=== PATIENT | female | born 1950 | race Caucasian/White ===

== ENCOUNTER → 2023-09-04 07:26 | Outpatient (REF) | payer MEDICARE, OTHER, SELFPAY | LOC: WDC 07:26 | PROVIDERS: ATTENDING PHYSICIAN Obstetrics & Gynecology Gynecology; FAMILY PHYSICIAN Student in an Organized Health Care Education/Training Program | DX: Z12.31 Encounter for screening mammogram for malignant neoplasm of breast (principal); M81.0 Age-related osteoporosis without current pathological fracture | CPT/HCPCS: 77063; 77067; 77080 ==

== ENCOUNTER → 2023-10-22 10:17 | Outpatient (REF) | payer MEDICARE, OTHER, SELFPAY | LOC: DHCBC MAIN 10:17 | PROVIDERS: ATTENDING PHYSICIAN Internal Medicine; FAMILY PHYSICIAN Student in an Organized Health Care Education/Training Program | DX: I34.1 Nonrheumatic mitral (valve) prolapse (principal); I10 Essential (primary) hypertension; I34.0 Nonrheumatic mitral (valve) insufficiency | CPT/HCPCS: 93306 ==

== ENCOUNTER → 2023-11-04 08:04 | Outpatient (REF) | payer MEDICARE, OTHER, SELFPAY | LOC: RAD 08:04 | PROVIDERS: ATTENDING PHYSICIAN Orthopaedic Surgery; FAMILY PHYSICIAN Student in an Organized Health Care Education/Training Program | DX: M25.561 Pain in right knee (principal) | CPT/HCPCS: 78315; A9503 ==

== ENCOUNTER → 2023-11-29 10:25 | Outpatient (REF) | payer MEDICARE, OTHER, SELFPAY | LOC: RAD 10:25 | PROVIDERS: ATTENDING PHYSICIAN Orthopaedic Surgery; FAMILY PHYSICIAN Student in an Organized Health Care Education/Training Program | DX: M25.561 Pain in right knee (principal) | CPT/HCPCS: 73700 ==

== ENCOUNTER → 2024-03-23 09:23 | Outpatient (REF) | payer MEDICARE, OTHER, SELFPAY | LOC: RAD 09:23 | PROVIDERS: ATTENDING PHYSICIAN Internal Medicine Endocrinology, Diabetes & Metabolism; FAMILY PHYSICIAN Student in an Organized Health Care Education/Training Program; REFERRING PHYSICIAN Internal Medicine | DX: E04.2 Nontoxic multinodular goiter (principal) | CPT/HCPCS: 76536 ==

== ENCOUNTER → 2024-09-30 10:07 | Outpatient (REF) | payer MEDICARE, OTHER, SELFPAY | LOC: RCS 10:07 | PROVIDERS: ATTENDING PHYSICIAN Internal Medicine; FAMILY PHYSICIAN Student in an Organized Health Care Education/Training Program | DX: I34.1 Nonrheumatic mitral (valve) prolapse (principal); I34.0 Nonrheumatic mitral (valve) insufficiency | CPT/HCPCS: 93306 ==

== ENCOUNTER 2024-10-19 12:50 | Emergency (ER) | payer MEDICARE, OTHER, SELFPAY ==
[2024-10-19 13:02] VITALS: BP 132/80
[2024-10-19 13:23] LABS: % Basophils 0.5 % (0-2); % Eosinophils 0.9 % (0-6); % Immature Granulocytes 0.5 % (0-0.5); % Lymphocytes 8.6 % (20.5-51.1); % Monocytes 5.7 % (1.7-9.3); % Neutrophils 83.8 % (42.2-75.2); Absolute Basophils 0.1 10^3/uL (0-0.2); Absolute Eosinophils 0.1 10^3/uL (0-0.7); Absolute Immature Granulocytes 0.1 10^3/uL (0-0.05); Absolute Monocytes 0.7 10^3/uL (0.1-0.6); Hematocrit 42.1 % (37.0-47.0); Mean Corp Hgb Conc. 33.3 g/dL (33.0-37.0); Mean Corpuscular Hgb 28.9 pg (27.0-31.0); Mean Platelet Volume 9.6 fL (7.4-10.4); Nucleated Red Blood Cells % 0 %; Platelet Count 355 10^3/uL (130-400); Red Blood Cell Count 4.84 10^6/uL (4.20-5.40); Red Cell Dist. Width 15.3 % (11.5-14.5)
[2024-10-19 13:39] LABS: ALT (SGPT) 15 U/L (0-35); AST (SGOT) 26 U/L (14-36); Albumin 4.6 g/dl (3.5-5.0); Alkaline Phosphatase 78 U/L (38-126); Blood Urea Nitrogen 13 mg/dl (7-17); Calcium 10.7 mg/dl (8.4-10.2); Carbon Dioxide 18 mmol/L (22-30); Chloride 105 mmol/L (98-107); Glucose 170 mg/dl (70-99); Lipase 157 U/L (23-300); Potassium 3.6 mmol/L (3.5-5.1); Sodium 139 mmol/L (135-145); Total Bilirubin 0.8 mg/dl (0.2-1.3); Total Protein 7.8 g/dl (6.3-8.2); eGFR > 60.00
--- NOTE | 2024-10-19 14:52 | ED.GENMED ---
History of Present Illness
General
Chief Complaint: Abdominal Symptoms
Source: patient
Exam Limitations: none
Time Seen by Provider: 10/19/24 14:51
Nursing documentation reviewed up to this point in time: agreed with
History of Present Illness
History of Present Illness:
74-year-old female with history of HTN, diverticulitis, IBS, Sjogren syndrome, osteoporosis, hypothyroidism, ADHD, balance disorder, delusional disorder, MDD, neurodermatitis, paranoia, presents for pain across lower abdomen. Last BM 2 days ago.
Feels constipated. Vomited 3-4 times in past 18 hours, last emesis here in [place]. Feels nauseous.
Past History
Past History
ED Past Medical History: HTN, Psychiatric and Other (IBS, TGA, Diverticulitis); Negative Asthma, Hypercholesterolemia or NIDDM
ED Past Surgical History: Orthopedic
Social History
Tobacco: Former smoker
Alcohol: None
Drug: None
Personal: Other
Living: with family
Review of Systems
Review of Systems
Allergies reviewed?: Yes
All Other Systems: ROS reviewed and negative except as documented in HPI and ROS
Constitutional: Denies fever
Cardiac: Denies chest pain
ABD/GI: Reports abdominal pain, nausea, vomiting and constipated; Denies diarrhea
: Denies dysuria, frequency or difficulty voiding
Musculoskeletal: Reports no symptoms
Skin: Reports no symptoms
Neurological: Reports no symptoms
Phy Exam
Physical Exam
Physical Exam:
GENERAL: No acute distress. A&Ox3.
CONSTITUTIONAL: Afebrile.
EYES: clear, conjunctivae normal
ENMT: moist mucus membranes, Pharynx nl
RESPIRATORY: Regular respirations, nonlabored, lungs clear.
CARDIOVASCULAR: Regular rate and rhythm, no murmurs, no rubs.
GI: Soft, generally tender, nondistended, normal BS
Rectal: no stool in rectal vault
MUSCULOSKELETAL: Moves with ease. Well perfused.
SKIN: Warm, dry, pink
PSYCH: Anxious mood and affect. Well kept, interactive and appropriate
NEUROLOGIC: Awake, alert and oriented. No focal neurological deficits
Course
Orders/Labs/Results
Orders:
Orders
10/19/24 13:12
Complete Blood Count/With Diff Urgent
Comprehensive Metabolic Panel Urgent
Lipase Urgent
10/19/24 14:58
CT Abd/Pel (IV only)-DH only Urgent
Comment:
Reason For Exam: pain across lower abdomen
10/19/24 14:59
0.9% Sodium Chloride 500 ml [Nss] 500 ml IV BOLUS
10/19/24 15:05
Ondansetron Injectable [Zofran] 4 mg .ROUTE .STK-MED ONE
10/19/24 16:04
Magnesium Citrate [Citroma] 300 ml PO ONCE ONE
10/19/24 16:15
Electrocardiogram (*1) Urgent
Reason for Study: QTc Monitoring
EKG- Treatment ONCE
Ondansetron Injectable [Zofran] 4 mg IV NOW STA
Abnormal Lab Results
10/19/24
13:12
WBC 12.0 H 10^3/uL
(4.8-10.8)
RDW 15.3 H %
(11.5-14.5)
Abs Immat Gran (auto) 0.1 H 10^3/uL
(0-0.05)
Absolute Neuts (auto) 10.0 H 10^3/uL
(1.4-6.5)
Absolute Lymphs (auto) 1.0 L 10^3/uL
(1.2-3.4)
Absolute Monos (auto) 0.7 H 10^3/uL
(0.1-0.6)
Neutrophils % 83.8 H %
(42.2-75.2)
Lymphocytes % 8.6 L %
(20.5-51.1)
Carbon Dioxide 18 L mmol/L
(22-30)
Glucose 170 H mg/dl
(70-99)
Calcium 10.7 H mg/dl
(8.4-10.2)
10/19/24 13:12
10/19/24 13:12
Vital Signs
Initial and Last Documented VS:
Initial Vital Signs
Temp Pulse Resp BP Pulse Ox
97.6 F 82 20 132/80 95
10/19/24 13:02 10/19/24 13:02 10/19/24 13:02 10/19/24 13:02 10/19/24 13:02
Last Documented Vital Signs
Temp Pulse Resp BP Pulse Ox
97.6 F 82 20 151/78 95
10/19/24 13:02 10/19/24 13:02 10/19/24 13:02 10/19/24 16:00 10/19/24 16:00
MDM/Problems Addressed
Differential Diagnosis Includes:
Constipation, diverticulitis
MDM/Problems Addressed:
74-year-old female with history of HTN, diverticulitis, IBS, Sjogren syndrome, osteoporosis, hypothyroidism, ADHD, balance disorder, delusional disorder, MDD, neurodermatitis, paranoia, presents for pain across lower abdomen. Last BM 2 days ago.
Feels constipated. Vomited 3-4 times in past 18 hours, last emesis here in [place]. Feels nauseous.
Afebrile, NAD
CBC: WBC 12.0
CMP: No clinically significant abnormality
Lipase normal
4:00 PM: CAT scan abdomen pelvis with
IV only contrast radiology report read: IMPRESSION:
There is a moderate colonic stool burden extending into the sigmoid colon, likely secondary to constipation.
Leiomyomatous uterus.
1.6 cm round, mildly hyperdense lesion adjacent to the right, and femoral artery. This is unchanged from prior examination in 2022 and may represent a prominent lymph node.
No further vomiting
Pt now states she has had Zofran in the past, she does not recall an allergic reaction, 'I don't know' if she's allergic to it
Will give a dose here and watch
Discussed findings with patient. She is comfortable going home with a bottle of mag citrate and will follow-up with her PCP as needed
4:50 PM:
Patient has had no adverse reaction to the Zofran IV
EKG shows prolonged QT interval so no rx for Zofran given
She is OOB and ambulating well, anxious to go home.
Chronic conditions affecting care: HTN, Psychiatric illness and Other (Diverticulitis)
*EKG
EKG Intrepretation Date: 10/19/24
Interpretation: abnormal
Heart Rate: 83
Rate: normal
Rhythm: sinus
[place]: normal axis
Interval: long QT
QRS Pattern: normal QRS
Ischemia: no ischemia
ED Attending Note
-
Portions of this chart may have been created with voice recognition software.� Occasional wrong word or��sound alike� substitutions may have occurred due to the inherent limitations of voice recognition software.
Discharge Plan
Departure
Patient Disposition: Home (Routine Discharge)
Date of Disposition: 10/19/24
Time of Disposition: 16:51
Patient with high blood pressure during this ER visit?: No
Condition: Good
Discharge Problem:
Constipation
Instructions: Constipation, Adult (DC), Abdominal Pain
Prescriptions:
No Action
dextroamphetamine sulfate 15 MG capsule, extended release
15 mg PO QID
Patient Comments:
01/02/16: CONFIRMED WITH PHARMACIST THAT PT IS ON ER FORMULATION 4X/DAY
clonazepam 0.5 MG tablet
0.5 mg PO TID
hydroxychloroquine 200 MG tablet
200 mg PO BID
multivitamin [Multi-Day] 1 EACH tablet
1 ea PO DAILY
duloxetine 30 MG capsule,delayed release(DR/EC)
30 mg PO DAILY
calcium-vitamin D3-vitamin K 1 EACH tablet,chewable
1 ea PO DAILY
valsartan 80 MG tablet
80 mg PO DAILY 0RF
tramadol [Ultram] 50 MG tablet
50 mg PO Q6HPRN PRN (Reason: severe pain) Qty: 10 0RF
cephalexin 500 MG capsule
500 mg PO TID Qty: 30 0RF
Referrals:
Davina Vides CNM [Family Provider] - As needed
Activity Restrictions/Additional Instructions:
As we discussed, take the entire bottle of mag citrate when you get home.
See your doctor in 2 to 3 days if you have not had a very good bowel movement by then
Interventions
Interventions:
*Risk Screen - Suicide Last Done: 10/19/24 13:02
*General Assessment Last Done: 10/19/24 13:02
*Neglect/Abuse Screening Last Done: 10/19/24 13:02
*Nursing Disposition Last Done: 10/19/24 16:50
YQ-Iyvlaw-Mgjqprjbzi Assessment Last Done: 10/19/24 15:18
Discharge Date and Time
Print Language: KHMER
[2024-10-19] MEDS: NSS 500 IV (15:38)
[2024-10-19 15:43] VITALS: BP 128/58
[2024-10-19 16:00] VITALS: BP 151/78
[2024-10-19] MEDS: CITROMA 300 ML PO (16:15)
[2024-10-19] MEDS: ZOFRAN 4 MG IV (16:16)
== END 2024-10-19 16:50 | disposition home or self-care (01) ==
LOC: EMR 12:50
PROVIDERS: Student in an Organized Health Care Education/Training Program; EMERGENCY PHYSICIAN Student in an Organized Health Care Education/Training Program; FAMILY PHYSICIAN Registered Nurse
DX: K59.00 Constipation, unspecified (principal); R11.2 Nausea with vomiting, unspecified; R10.9 Unspecified abdominal pain; I10 Essential (primary) hypertension; K57.92 Diverticulitis of intestine, part unspecified, without perforation or abscess without bleeding; M35.00 Sjogren syndrome, unspecified; M81.0 Age-related osteoporosis without current pathological fracture; E03.9 Hypothyroidism, unspecified; F90.9 Attention-deficit hyperactivity disorder, unspecified type; K58.9 Irritable bowel syndrome, unspecified; F22 Delusional disorders; M06.9 Rheumatoid arthritis, unspecified; Z87.891 Personal history of nicotine dependence; Z88.1 Allergy status to other antibiotic agents; Z88.5 Allergy status to narcotic agent; Z88.8 Allergy status to other drugs, medicaments and biological substances
CPT/HCPCS: 99284; 96361; 96374; 74177; 80053; 83690; 85025; 93005; Q9967

== ENCOUNTER 2024-10-19 18:44 | Emergency (ER) | payer MEDICARE, OTHER, SELFPAY ==
[2024-10-19 19:01] VITALS: BP 150/81
[2024-10-19 20:48] VITALS: BP 178/105
[2024-10-19 20:53] VITALS: BMI 26.0
--- NOTE | 2024-10-19 21:27 | ED.GENMED ---
History of Present Illness
General
Chief Complaint: Abdominal Symptoms
Time Seen by Provider: 10/19/24 21:21
History of Present Illness
History of Present Illness:
Patient is a 74-year-old woman with history of hypertension, diverticulitis presenting to the emergency department vomiting. Patient states that she came to the emergency room earlier for vomiting few times in the past day and 2 days of
constipation. She states that when she came here she had a CAT scan done which showed constipation. She was sent home with magnesium citrate. Patient states that she went home and vomited after she drank the magnesium citrate. Per chart review
it appears the patient did have a CT scan that does show moderate colonic stool burden. There was no obstruction. EKG from earlier does show prolonged QTc.
Past History
Past History
ED Past Medical History: HTN, Psychiatric and Other (IBS, TGA, Diverticulitis); Negative Asthma, Hypercholesterolemia or NIDDM
ED Past Surgical History: Orthopedic
Social History
Tobacco: Former smoker
Alcohol: None
Drug: None
Personal: Other
Living: with family
Phy Exam
Physical Exam
Physical Exam:
GENERAL: in no acute distress
HEENT: normocephalic, extraocular movements intact, moist oral mucosa
NECK: normal inspection
RESPIRATORY: no respiratory distress, clear to auscultation bilaterally
CARDIOVASCULAR: regular rate and rhythm
ABDOMEN/: soft, non-distended, non-tender to palpation, no rebound or guarding
EXTREMITIES: non-tender, no edema/swelling
NEUROLOGIC: awake and alert, moves all extremities
SKIN: warm
Course
Orders/Labs/Results
Orders:
Orders
10/19/24 21:26
Electrocardiogram (*1) Urgent
Reason for Study: QTc Monitoring
EKG- Treatment ONCE
Enema- Treatment ONCE
Type: Soap Suds
Trimethobenzamide [Tigan] 200 mg IM NOW STA
Vital Signs
Initial and Last Documented VS:
Initial Vital Signs
Temp Pulse Resp BP Pulse Ox
97.9 F 86 18 150/81 95
10/19/24 19:01 10/19/24 19:01 10/19/24 19:01 10/19/24 19:01 10/19/24 19:01
Last Documented Vital Signs
Temp Pulse Resp BP Pulse Ox
98.3 F 86 18 178/105 95
10/19/24 20:53 10/19/24 19:01 10/19/24 19:01 10/19/24 20:48 10/19/24 21:27
MDM/Problems Addressed
Differential Diagnosis Includes:
Patient is a 74-year-old woman presenting to the emergency department after vomiting the magnesium citrate that she was given earlier today for constipation. On arrival vitals unremarkable. Exam does show a soft benign abdomen. Vomiting could be
secondary to the constipation versus viral gastritis. History and exam not consistent with an acute abdomen and it is reassuring that she had a CT scan done about 5 hours ago which did not show any thing acute. Will give patient Tigan for the
vomiting and reassess. I did ask patient about the constipation and patient does states that it is significant. She initially declined the enema when she was here earlier. I did review CT imaging. She does have stool in the sigmoid colon. Will
trial enema to see if there is any relief.
*Critical Care Note
Total Time (30-74mins, 75-104mins- exclusive of procedures): Not Applicable
Update Note
Update Note:
Enema unsuccessful as was anticipated as the stool was higher up. Patient is tolerating p.o. after the Tigan. Will discharge at this time. Patient advised with clear liquid diet. Patient advised to holding off on a constipation regimen until she
is able to tolerate food. Will discharge at this time.
ED Attending Note
-
Portions of this chart may have been created with voice recognition software.� Occasional wrong word or��sound alike� substitutions may have occurred due to the inherent limitations of voice recognition software.
Discharge Plan
Departure
Patient Disposition: Home (Routine Discharge)
Date of Disposition: 10/20/24
Time of Disposition: 00:02
Patient with high blood pressure during this ER visit?: No
Discharge Problem:
Vomiting, Constipation
Instructions: Constipation, Adult (DC), Nausea and Vomiting, Adult (DC)
Prescriptions:
No Action
dextroamphetamine sulfate 15 MG capsule, extended release
15 mg PO QID
Patient Comments:
01/02/16: CONFIRMED WITH PHARMACIST THAT PT IS ON ER FORMULATION 4X/DAY
clonazepam 0.5 MG tablet
0.5 mg PO TID
hydroxychloroquine 200 MG tablet
200 mg PO BID
multivitamin [Multi-Day] 1 EACH tablet
1 ea PO DAILY
duloxetine 30 MG capsule,delayed release(DR/EC)
30 mg PO DAILY
calcium-vitamin D3-vitamin K 1 EACH tablet,chewable
1 ea PO DAILY
valsartan 80 MG tablet
80 mg PO DAILY 0RF
tramadol [Ultram] 50 MG tablet
50 mg PO Q6HPRN PRN (Reason: severe pain) Qty: 10 0RF
cephalexin 500 MG capsule
500 mg PO TID Qty: 30 0RF
Referrals:
Davina Vides CNM [Family Provider] -
Activity Restrictions/Additional Instructions:
You have been evaluated in the Emergency Department today for nausea and vomiting. Your evaluation suggests that your symptoms are most likely due to viral illness which will improve on its own with rest and fluids. Remember to drink plenty of
fluids at home. Part of it could also be secondary to your constipation. Please start using MiraLAX once you are able to tolerate food
Please follow up with your primary care physician within two days.
Return to the Emergency Department if you experience worsening or uncontrolled pain, inability to tolerate fluids by mouth, difficulty breathing, fevers 100.4�F or greater, recurrent vomiting, or any other concerning symptoms.
Thank you for choosing us for your care.
Interventions
Interventions:
*Risk Screen - Suicide Last Done: 10/19/24 19:01
*General Assessment Last Done: 10/19/24 20:53
*Neglect/Abuse Screening Last Done: 10/19/24 19:01
*ED- Fall Risk Assessment Last Done: 10/19/24 20:53
*ED COVID-19 Vaccine History Last Done: 10/19/24 20:53
HY-Qtrywy-Ghtlrvbxqc Assessment Last Done: 10/19/24 20:53
Discharge Date and Time
Print Language: SWAZI
[2024-10-19] MEDS: TIGAN 200 MG IM (21:53)
== END 2024-10-20 01:40 | disposition home or self-care (01) ==
LOC: EMR 18:44
PROVIDERS: EMERGENCY PHYSICIAN Student in an Organized Health Care Education/Training Program; FAMILY PHYSICIAN Registered Nurse
DX: R11.10 Vomiting, unspecified (principal); K59.00 Constipation, unspecified; I10 Essential (primary) hypertension; K57.92 Diverticulitis of intestine, part unspecified, without perforation or abscess without bleeding; K58.9 Irritable bowel syndrome, unspecified; Z87.891 Personal history of nicotine dependence; Z88.1 Allergy status to other antibiotic agents; Z88.5 Allergy status to narcotic agent; Z88.8 Allergy status to other drugs, medicaments and biological substances
CPT/HCPCS: 99284; 96372; 93005

== ENCOUNTER 2024-10-21 09:47 | Emergency (ER) | payer MEDICARE, OTHER, SELFPAY ==
[2024-10-21 09:51] VITALS: BP 153/77
[2024-10-21 11:37] VITALS: BP 146/67; BMI 21.9
[2024-10-21] MEDS: MORPHINE SULFATE 4 MG IV (11:48)
[2024-10-21 11:52] LABS: % Basophils 0.3 % (0-2); % Eosinophils 0.6 % (0-6); % Immature Granulocytes 0.3 % (0-0.5); % Lymphocytes 14.1 % (20.5-51.1); % Monocytes 11.9 % (1.7-9.3); % Neutrophils 72.8 % (42.2-75.2); Absolute Eosinophils 0.1 10^3/uL (0-0.7); Absolute Lymphocytes 1.2 10^3/uL (1.2-3.4); Absolute Monocytes 1.1 10^3/uL (0.1-0.6); Absolute Neutrophils 6.4 10^3/uL (1.4-6.5); Hematocrit 36.1 % (37.0-47.0); Hemoglobin 12.3 g/dL (12.0-16.0); Mean Corp Hgb Conc. 34.1 g/dL (33.0-37.0); Mean Corpuscular Hgb 29.1 pg (27.0-31.0); Mean Corpuscular Volume 85.5 fL (81.0-99.0); Nucleated Red Blood Cells % 0 %; Platelet Count 366 10^3/uL (130-400); Red Blood Cell Count 4.22 10^6/uL (4.20-5.40); Red Cell Dist. Width 15.6 % (11.5-14.5); White Blood Cell Count 8.8 10^3/uL (4.8-10.8)
[2024-10-21 12:00] VITALS: BP 166/95
[2024-10-21 12:19] LABS: Blood Urea Nitrogen 14 mg/dl (7-17); Carbon Dioxide 19 mmol/L (22-30); Chloride 101 mmol/L (98-107); Estimated Creatinine Clearance 76 ml/min; Glucose 101 mg/dl (70-99); Sodium 132 mmol/L (135-145); eGFR > 60.00
--- NOTE | 2024-10-21 12:40 | ED.GENMED ---
History of Present Illness
General
Chief Complaint: Abdominal Pain
Source: patient
Exam Limitations: none
Time Seen by Provider: 10/21/24 10:52
History of Present Illness
History of Present Illness:
74-year-old female with a history of diverticulitis, IBS, constipation who presents again with lower abdominal pain that this time she states is worse. She states she did have a small bowel movement but last time she did not have much relief before
leaving the ER. She went to urgent care who sent her here to the emergency department. He states her pain is severe. No vomiting. No fevers. Feels like the pain is in the lower abdomen. States that she did put 2 small bowel movements out so
was hoping that it was getting better. No urinary symptoms.
Past History
Past History
ED Past Medical History: HTN, Psychiatric and Other (IBS, TGA, Diverticulitis); Negative Asthma, Hypercholesterolemia or NIDDM
ED Past Surgical History: Orthopedic
Social History
Tobacco: Former smoker
Alcohol: None
Drug: None
Personal: Other
Living: with family
Phy Exam
Physical Exam
Physical Exam:
CONSTITUTIONAL Patient alert and oriented to person, place and time. Moderate pain distress. Vital signs reviewed.
HEAD atraumatic, normocephalic.
EYES eyelids normal to inspection, Extraocular muscles intact, Conjunctiva normal, Sclera normal.
NECK normal range of motion, Trachea midline, no jugular venous distention.
RESPIRATORY CHEST No respiratory distress noted, Chest expansion equal
ABDOMEN no distention, hypoactive bowel sounds, moderate diffuse tenderness
BACK normal inspection, no obvious deformities
UPPER EXTREMITY range of motion normal, Motor strength normal, no cyanosis, no edema.
LOWER EXTREMITY range of motion normal, Motor strength normal, no cyanosis, no edema.
NEURO Speech normal, No focal motor deficits, [place] coma scale 15, Memory normal, Cranial Nerves intact to screening exam.
SKIN skin warm, dry, and normal in color.
Course
Orders/Labs/Results
Orders:
Orders
10/21/24 11:17
CT Abd/pelvis W Iv Cont Urgent
Comment:
Reason For Exam: severe abd pain, r/o perforation, recent constipat
10/21/24 11:36
Basic Metabolic Panel Urgent
Complete Blood Count/With Diff Urgent
10/21/24 11:38
Morphine Sulfate 4 mg IV NOW STA
10/21/24 11:39
Morphine Sulfate 4 mg .ROUTE .STK-MED ONE
Abnormal Lab Results
10/21/24
11:36
Hct 36.1 L %
(37.0-47.0)
RDW 15.6 H %
(11.5-14.5)
Absolute Monos (auto) 1.1 H 10^3/uL
(0.1-0.6)
Lymphocytes % 14.1 L %
(20.5-51.1)
Monocytes % 11.9 H %
(1.7-9.3)
Sodium 132 L mmol/L
(135-145)
Carbon Dioxide 19 L mmol/L
(22-30)
Creatinine 0.5 L mg/dL
(0.6-1.0)
Glucose 101 H mg/dl
(70-99)
10/21/24 11:36
10/21/24 11:36
Vital Signs
Initial and Last Documented VS:
Initial Vital Signs
Temp Pulse Resp BP Pulse Ox
98.3 F 73 24 153/77 98
10/21/24 09:51 10/21/24 09:51 10/21/24 09:51 10/21/24 09:51 10/21/24 09:51
Last Documented Vital Signs
Temp Pulse Resp BP Pulse Ox
98.5 F 75 16 166/95 90
10/21/24 11:37 10/21/24 11:37 10/21/24 11:37 10/21/24 12:00 10/21/24 12:15
MDM/Problems Addressed
Differential Diagnosis Includes:
Bowel perforation, diverticulitis, constipation, bowel obstruction
MDM/Problems Addressed:
Abdominal pain, constipation
*Radiology
Radiology exam reviewed: preliminary read by ED provider (No free air) and radiology read reviewed
*Pulse Oximetry
Patient hypoxic: no
*Critical Care Note
Total Time (30-74mins, 75-104mins- exclusive of procedures): Not Applicable
Data Reviewed
Review of Other/Old Records Reveals: Labs and Radiology Studies (Recent CT report reviewed from October 19)
Source: patient
Prescriptions/Medications Considered But Not Given:
Considered antibiotics but no evidence of acute infectious process
Patient Management
Escalation/DeEscalation of care consider admission/obs:
74-year-old female who again presents with abdominal discomfort. White count normal. CT shows no acute process. Does have some stool in the bowel but otherwise grossly unremarkable as per report. White count normal. Okay for outpatient follow-up
ED Attending Note
-
Portions of this chart may have been created with voice recognition software.� Occasional wrong word or��sound alike� substitutions may have occurred due to the inherent limitations of voice recognition software.
Discharge Plan
Departure
Patient Disposition: Home (Routine Discharge)
Date of Disposition: 10/21/24
Time of Disposition: 13:34
Patient with high blood pressure during this ER visit?: Yes
Discharge Problem:
Abdominal pain
Instructions: Abdominal Pain, BLOOD PRESSURE
Prescriptions:
No Action
dextroamphetamine sulfate 15 MG capsule, extended release
15 mg PO QID
Patient Comments:
01/02/16: CONFIRMED WITH PHARMACIST THAT PT IS ON ER FORMULATION 4X/DAY
clonazepam 0.5 MG tablet
0.5 mg PO TID
hydroxychloroquine 200 MG tablet
200 mg PO BID
multivitamin [Multi-Day] 1 EACH tablet
1 ea PO DAILY
duloxetine 30 MG capsule,delayed release(DR/EC)
30 mg PO DAILY
calcium-vitamin D3-vitamin K 1 EACH tablet,chewable
1 ea PO DAILY
valsartan 80 MG tablet
80 mg PO DAILY 0RF
tramadol [Ultram] 50 MG tablet
50 mg PO Q6HPRN PRN (Reason: severe pain) Qty: 10 0RF
cephalexin 500 MG capsule
500 mg PO TID Qty: 30 0RF
Referrals:
Queenie Almanzar PA-C [Family Provider] -
Activity Restrictions/Additional Instructions:
Please use magnesium citrate today. Please start MiraLAX twice a day for 4 days starting tomorrow. Return immediate for intractable vomiting, intractable fevers or any other concerns.
Interventions
Interventions:
*Risk Screen - Suicide Last Done: 10/21/24 09:51
*General Assessment Last Done: 10/21/24 09:51
*Neglect/Abuse Screening Last Done: 10/21/24 09:51
*ED- Fall Risk Assessment Last Done: 10/21/24 11:37
*ED COVID-19 Vaccine History Last Done: 10/21/24 11:37
JT-Frioss-Jkxrhtwzdo Assessment Last Done: 10/21/24 11:37
Discharge Date and Time
Print Language: MONTSERRATIAN
[2024-10-21] MEDS: CITROMA 300 ML PO (13:59)
== END 2024-10-21 14:15 | disposition home or self-care (01) ==
LOC: EMR 09:47
PROVIDERS: EMERGENCY PHYSICIAN Emergency Medicine; FAMILY PHYSICIAN Student in an Organized Health Care Education/Training Program
DX: R10.30 Lower abdominal pain, unspecified (principal); K57.92 Diverticulitis of intestine, part unspecified, without perforation or abscess without bleeding; K58.9 Irritable bowel syndrome, unspecified; I10 Essential (primary) hypertension; Z87.891 Personal history of nicotine dependence; Z88.1 Allergy status to other antibiotic agents; Z88.5 Allergy status to narcotic agent; Z88.8 Allergy status to other drugs, medicaments and biological substances
CPT/HCPCS: 99284; 96374; 74177; 80048; 85025; Q9967

== ENCOUNTER 2024-10-25 20:00 | Observation (INO) | payer MEDICARE, OTHER, SELFPAY ==
[2024-10-25] VITALS (11 sets, daily range): BP systolic 106–139; BP diastolic 48–94; BMI 25.8; BMI 24.7
[2024-10-25 12:35] LABS: % Basophils 0.8 % (0-2); % Eosinophils 3.7 % (0-6); % Immature Granulocytes 0.4 % (0-0.5); % Lymphocytes 19.1 % (20.5-51.1); % Monocytes 11.7 % (1.7-9.3); % Neutrophils 64.3 % (42.2-75.2); Absolute Basophils 0.1 10^3/uL (0-0.2); Absolute Eosinophils 0.3 10^3/uL (0-0.7); Absolute Lymphocytes 1.6 10^3/uL (1.2-3.4); Absolute Neutrophils 5.4 10^3/uL (1.4-6.5); Hematocrit 42.6 % (37.0-47.0); Hemoglobin 14.5 g/dL (12.0-16.0); Mean Corpuscular Hgb 29.8 pg (27.0-31.0); Mean Corpuscular Volume 87.5 fL (81.0-99.0); Mean Platelet Volume 9.6 fL (7.4-10.4); Nucleated Red Blood Cells % 0 %; Platelet Count 343 10^3/uL (130-400); Red Blood Cell Count 4.87 10^6/uL (4.20-5.40); Red Cell Dist. Width 15.2 % (11.5-14.5); White Blood Cell Count 8.4 10^3/uL (4.8-10.8)
--- NOTE | 2024-10-25 12:36 | ED.GENMED ---
History of Present Illness
General
Chief Complaint: Abdominal Symptoms
Source: patient and records
Exam Limitations: none
Time Seen by Provider: 10/25/24 12:23
History of Present Illness
History of Present Illness:
74yoF with a history of rheumatoid arthritis, Sjogren's syndrome, hypertension, diverticulosis, and osteoporosis presenting via EMS for evaluation of abdominal pain. This is patient's 4th ED visit in the past week for the same complaints. She
reports abdominal discomfort primarily in her center abdomen. She is also having nausea and constipation. Last solid BM was 1 week ago. She received magnesium citrate and an enema at her previous ED visits without any relief. She is able to pass
a small amount of liquid stool. Patient was seen by her patient registration specialist today and her blood pressure was 80/40 in the office and EMS was called. Initial SBP was 88 for EMS. She denies any fevers, chest pain, shortness of breath, difficulty
urinating. No previous abdominal surgeries. Of note, patient started Ozempic about 6 months ago. She has also been taking Boniva 3x daily instead of the prescribed once monthly, last dose was last week.
Past History
Past History
ED Past Medical History: HTN, Psychiatric and Other (IBS, TGA, Diverticulitis); Negative Asthma, Hypercholesterolemia or NIDDM
ED Past Surgical History: Orthopedic
Social History
Tobacco: Former smoker
Alcohol: None
Drug: None
Personal: Other
Living: with family
Phy Exam
Physical Exam
Physical Exam:
Appears uncomfortable, non-toxic
General Physical Exam
General Presentation: no apparent distress
General Skin: warm and dry
General Habitus: normal and elderly
General Mental: alert
ENT Exam
ENT Exam: normocephalic
Cardiovascular Exam
Cardiovascular Exam: regular rate/rhythm
Pulmonary Exam
Pulmonary Exam: lungs clear, no respiratory distress, no rales, no crackles and no rhonchi
Gastrointestinal Exam
Gastrointestinal Exam: normal bowel sounds, soft, non distended and other (+Mild generalized tenderness. Abdomen soft, non-distended. No rebound or guarding.)
Neurological Exam
Neurological Exam: alert
[place] Coma Scale
Eye Opening: Spontaneous
Verbal Response: Oriented
Motor Response: Obeys Commands
GCS Total Score: 15
Skin Exam
Skin Exam: normal color and warm/dry
Psychiatric Exam
Psychiatric Exam: normal mood/affect
Course
Orders/Labs/Results
Orders:
Orders
10/25/24 12:21
Complete Blood Count/With Diff Urgent
Comprehensive Metabolic Panel Urgent
Lipase Urgent
Comment: ADD ON
10/25/24 12:35
Add On- LAB Urgent
Tests Added?: lipase
Electrocardiogram (*1) Urgent
Reason for Study: Abdominal Pain
CT Abd/pel W Iv And Oral Contr Urgent
Comment:
Reason For Exam: generalized abd pain, hypotension
EKG- Treatment ONCE
0.9% Sodium Chloride 500 ml [Nss] 500 ml IV BOLUS
Fentanyl Citrate/Pf [Sublimaze] 50 mcg IV NOW STA
Iohexol [Omnipaque] See Protocol PO NOW STA
10/25/24 13:14
Lactate Level [Lactic Acid] Urgent
Troponin I Urgent
10/25/24 17:23
0.9% Sodium Chloride 500 ml [Nss] 500 ml IV BOLUS
10/25/24 19:34
Admit/Transfer Patient As Directed
Co-Sign Provider:
Level of Care: Observation services
Assign to:: Medical/Surgical
Physician / Group: Jonel
Diagnosis: Abd Pain
PRN Pain Medication Management As Directed
May give lesser potent ordered pain med per pt: Yes
preference::
Protocol:: Medication orders for pain may be administered in a
manner that supports deferring to patient preference
when the pt is:
- Requesting an ordered lesser potent pain medication.
Least to most potent pain medications are defined
as: acetaminophen < NSAID < tramadol < opioids
(morphine, oxycodone, hydromorphone).
- Requesting a lesser dose of the same medication IF
ORDERED.
- Requesting a less intrusive route of administration
if both routes are prescribed by the provider (PO <
IV).
10/25/24 19:38
Code Status As Directed
Resuscitation Status: Full Code
10/25/24 19:43
Ketorolac [Toradol] 15 mg IV NOW STA
Abnormal Lab Results
10/25/24
12:21
RDW 15.2 H %
(11.5-14.5)
Absolute Monos (auto) 1.0 H 10^3/uL
(0.1-0.6)
Lymphocytes % 19.1 L %
(20.5-51.1)
Monocytes % 11.7 H %
(1.7-9.3)
Sodium 134 L mmol/L
(135-145)
BUN 22 H mg/dl
(7-17)
Lipase 305 H U/L
(23-300)
10/25/24 12:21
10/25/24 12:21
Vital Signs
Initial and Last Documented VS:
Initial Vital Signs
BP
112/58
10/25/24 12:07
Last Documented Vital Signs
Temp Pulse Resp BP Pulse Ox
98.6 F 71 19 122/67 96
10/25/24 12:12 10/25/24 18:45 10/25/24 18:45 10/25/24 17:22 10/25/24 17:30
MDM/Problems Addressed
Differential Diagnosis Includes:
74yoF here with nausea, abd pain, constipation. 4th ED visit in the past week for the same. Sent in by endocrinology office for low BP. BP 80s/50s prehospital although BP on arrival 112/58. She appears uncomfortable but is nontoxic. No signs of
peritonitis on abdominal exam. Differential diagnosis includes but is not limited to: Medication side effect, pancreatitis, constipation, bowel obstruction, dehydration
Initial ED plan: Check abdominal labs, lactate, troponin/EKG, and CT abdomen with IV/p.o. contrast. IV fentanyl and fluid bolus for symptoms.
*EKG
Interpreted by ED Provider?: Yes
EKG Intrepretation Date: 10/25/24
Heart Rate: 81
Rate: normal
Rhythm: sinus
[place]: left axis deviation
Interval: long QT (QTc 485)
QRS Pattern: normal QRS
Ischemia: non-specific ST changes
*Critical Care Note
Total Time (30-74mins, 75-104mins- exclusive of procedures): Not Applicable
Update Note
Update Note:
EKG shows NSR with nonspecific ST changes and troponin WNL. Lipase 305. Remainder of labs unremarkable including normal white count, renal function, LFTs. CT abdomen shows mild ileocolitis. Patient with persistent symptoms on reassessment. Discussed
with daughter over the phone. Daughter does not feel comfortable with patient going home and is requesting a GI consult. Patient admitted for further evaluation.
ED Attending Note
-
Portions of this chart may have been created with voice recognition software.� Occasional wrong word or��sound alike� substitutions may have occurred due to the inherent limitations of voice recognition software.
Discharge Plan
Departure
Patient Disposition: Admit
Date of Disposition: 10/25/24
Time of Disposition: 18:11
Presentation/result/management discussed w/ accepting MD/DO: Hospitalist
Discharge Problem:
Ileocolitis, Nausea
Prescriptions:
No Action
acetaminophen [Tylenol] 325 mg Tablet
650 mg PO Q6HPRN PRN (Reason: mild pain)
leflunomide 10 mg Tablet
10 mg PO HS
candesartan 32 mg Tablet
32 mg PO DAILY
hydroxychloroquine [Plaquenil] 200 mg Tablet
300 mg PO HS
ibandronate 150 mg tablet
150 mg PO MONTHLY
omeprazole 20 mg Tablet,Delayed Release (Dr/Ec)
20 mg PO DAILY
clonazepam 1 mg Tablet
1 mg PO HS
fluoxetine 20 mg Capsule
20 mg PO DAILY
Referrals:
Holli Mauricio PA [Family Provider] -
Interventions
Interventions:
*Risk Screen - Suicide Last Done: 10/25/24 12:12
*General Assessment Last Done: 10/25/24 12:12
*Neglect/Abuse Screening Last Done: 10/25/24 12:19
*ED- Fall Risk Assessment Last Done: 10/25/24 12:12
*ED COVID-19 Vaccine History Last Done: 10/25/24 12:12
Discharge Date and Time
Print Language: MOROCCAN
[2024-10-25 13:03] LABS: ALT (SGPT) 17 U/L (0-35); AST (SGOT) 22 U/L (14-36); Albumin 3.5 g/dl (3.5-5.0); Alkaline Phosphatase 61 U/L (38-126); Blood Urea Nitrogen 22 mg/dl (7-17); Calcium 10.2 mg/dl (8.4-10.2); Carbon Dioxide 25 mmol/L (22-30); Chloride 100 mmol/L (98-107); Estimated Creatinine Clearance 44 ml/min; Glucose 99 mg/dl (70-99); Lipase 305 U/L (23-300); Potassium 3.5 mmol/L (3.5-5.1); Sodium 134 mmol/L (135-145); Total Bilirubin 0.7 mg/dl (0.2-1.3); Total Protein 6.4 g/dl (6.3-8.2); eGFR > 60.00
[2024-10-25] MEDS: NSS 500 IV (13:05)
[2024-10-25] MEDS: OMNIPAQUE 50 ML PO (13:06)
[2024-10-25] MEDS: SUBLIMAZE 50 MCG IV (13:08)
[2024-10-25 13:41] LABS: Lactic Acid 1.2 mmol/L (0.7-2.0)
[2024-10-25 13:53] LABS: Troponin I 0.014 ng/ml
--- NOTE | 2024-10-25 19:41 | HPS.HSE ---
Addendum entered and electronically signed by Ward Remy, 10/25/24 21:16:
Reviewed with GI and Radiology.
Initial CT A/P with IV contrast re-reviewed by Radiology.
Abdominal vessels are well-seen and no evidence of any focal stenosis / intestinal or mesenteric ischemia.
Addendum entered and electronically signed by Ward Remy, DO 10/25/24 20:28:
Clarified with patient that she 'started' Boniva two weeks ago. She reports that she was taking this medication three times daily.
Suspect that this is the etiology of her abdominal discomfort. ? mucosal injury / duodenitis.
Reviewed with GI who recommend CT angio to definitively exclude ischemia.
Continue IV PPI. NPO for now. ? endoscopic examination.
Original Note:
Family Physician
-
Family Physician: Holli Mauricio
Chief Complaint
-
Abd pain
History of Present Illness
Patient is a 74y F with PMH significant for hypertension, RA and Sjogren's who presents to ED complaining of abdominal pain with N/V/D (and constipation). Patient states that she developed mid-upper abdominal pain about one week ago. She has
felt constipated and has been taking medications / laxatives in attempt to move her bowels. She developed N/V after attempting Mg Citrate for constipation.
Patient states that her last formed BM was about one week ago. She has had a few episodes of small volume liquid stools since that time. No bloody / black stools.
No fevers. No known sick contacts.
Patient started Boniva about two weeks ago. No other new medications.
Medical History
Past Medical History
Past Medical History: Reports Other
Additional Past Medical History:
Hypertension
Rheumatoid Arthritis
Sjogren's Syndrome
GERD / PUD
Past Surgical History: Reports Other
Additional Past Surgical History:
Right TKA
Shoulder Surgery
Lumbar Fusion
Social History
Tobacco: Former Smoker (Remote h/o tobacco use.)
Alcohol: None
Drug: None
Family History
Family History: Not pertinent
Allergies / Home Medications
Allergies reflects when Allergies were last updated in [employer].
Home Medications with original date entered in [employer]
Allergy/Medication List:
Allergies
Allergy/AdvReac Type Severity Reaction Status Date / Time
ondansetron HCl Allergy Intermediate Hives Verified 10/21/24 09:54
[From Zofran (as
hydrochloride)]
clavulanic acid Allergy GI UPSET Verified 10/21/24 09:54
erythromycin base Allergy Hives Verified 10/21/24 09:54
oxycodone HCl [From Percocet] Allergy Hives - Verified 10/21/24 09:54
WITH
GENERICS
Shellfish *RETIRED-03/24/12 Allergy Hives Verified 10/21/24 09:54
[Shellfish]
Home Medications
acetaminophen 325 mg tablet (Tylenol) 650 mg PO Q6HPRN PRN mild pain 10/25/24
candesartan 32 mg tablet 32 mg PO DAILY 10/25/24
clonazepam 1 mg tablet 1 mg PO HS 10/25/24
fluoxetine 20 mg capsule 20 mg PO DAILY 10/25/24
hydroxychloroquine 200 mg tablet (Plaquenil) 300 mg PO HS 10/25/24
ibandronate 150 mg tablet 150 mg PO MONTHLY 10/25/24
leflunomide 10 mg tablet 10 mg PO HS 10/25/24
omeprazole 20 mg tablet,delayed release 20 mg PO DAILY 10/25/24
Review of Systems
-
History Source: Patient
A 12 point ROS was completed and negative except as noted: Yes
Constitutional: Reports Chills; Denies Fever or Fatigue
Respiratory: Denies Cough or Trouble Breathing
Cardiac: Denies Chest Pain or Palpitations
Abdomen/GI: Reports Abdominal Pain, Nausea, Vomiting, Diarrhea, Constipated and Anorexia; Denies Bloody Stools or Black Stools
: Denies Dysuria, Frequency or Flank Pain
Musculoskeletal: Denies Joint Pain or Edema
Neurological: Reports Headache; Denies Dizzy
Psych: Denies Depression or Anxiety
Physical Exam
Vital Signs
Vital Signs
Temp Pulse Resp BP Pulse Ox
98.6 F 71 19 122/67 96
10/25/24 12:12 10/25/24 18:45 10/25/24 18:45 10/25/24 17:22 10/25/24 17:30
Physical Exam
General: Other (74y F in mild distress due to abdominal discomfort.)
HEENT: Moist mucous membranes and PERRLA
Respiratory: Clear; No Wheezes, Rales or Rhonchi
Cardiac: S1/S2 and Regular Rhythm; No Murmur
GI: Soft, Non Distended, Normal Bowel Sounds and Other (Diffuse abdominal tenderness without rebound / guarding.)
Musculoskeletal: No Clubbing, No Cyanosis and No Edema
Neuro: AO x 3
Laboratory Results
-
10/25/24 12:21
10/25/24 12:21
Laboratory Results
Lactic Acid 1.2 mmol/L (0.7-2.0) 10/25/24 13:14
Total Bilirubin 0.7 mg/dl (0.2-1.3) 10/25/24 12:21
AST 22 U/L (14-36) 10/25/24 12:21
ALT 17 U/L (0-35) 10/25/24 12:21
Alkaline Phosphatase 61 U/L (38-126) 10/25/24 12:21
Troponin I 0.014 ng/ml 10/25/24 13:14
Lipase 305 U/L (23-300) H 10/25/24 12:21
Impression/Plan
-
A/P: Patient is a 74y F with PMH significant for HTN and RA who presents to ED complaining of one week of abdominal pain and N/V/constipation.
Abdominal Pain
- Observe overnight for further evaluation and treatment.
- Abdominal pain is out of proportion to exam findings. Diffusely / significantly tender.
- CT scan with mild ileocolitis and no other significant findings.
- Lactate normal. Afebrile. No leukocytosis.
- IV PPI daily.
- Hold further Boniva (symptoms started after beginning this medication).
- Supportive care with antiemetics, pain control, etc.
- GI evaluation for additional recommendations.
Benign Hypertension
- Patient reportedly was hypotensive at physician's office today and was sent to the ED.
- Received IVFs by EMS en route to hospital.
- BP has remained stable here.
- Hold BP medications and follow for stability.
- Continue IVF support.
Rheumatoid Arthritis
Sjogren's
- Stable. Continue current med regimen / supportive care.
GERD / PUD
- Continue daily PPI.
Anxiety / Insomnia
- Continue HS clonazepam.
DVT Prophylaxis: SCDs
Code Status: Full
[2024-10-25] MEDS: TORADOL 15 MG IV (20:06)
[2024-10-25] MEDS: LR 1000 IV (21:32)
[2024-10-25] MEDS: PLAQUENIL 300 MG PO (21:45)
[2024-10-25] MEDS: KLONOPIN 1 MG PO (21:46)
[2024-10-25] MEDS: TYLENOL 650 MG PO (21:46)
[2024-10-26] VITALS (10 sets, daily range): BP systolic 119–146; BP diastolic 62–81; BMI 24.9
[2024-10-26] MEDS: TORADOL 10 MG IV (01:50)
[2024-10-26] MEDS: MORPHINE SULFATE 2 MG IV (06:27)
[2024-10-26 06:29] LABS: Hematocrit 36.2 % (37.0-47.0); Hemoglobin 12.2 g/dL (12.0-16.0); Mean Corp Hgb Conc. 33.7 g/dL (33.0-37.0); Mean Corpuscular Hgb 29.5 pg (27.0-31.0); Mean Corpuscular Volume 87.4 fL (81.0-99.0); Mean Platelet Volume 9.9 fL (7.4-10.4); Platelet Count 260 10^3/uL (130-400); Red Blood Cell Count 4.14 10^6/uL (4.20-5.40); White Blood Cell Count 5.3 10^3/uL (4.8-10.8)
[2024-10-26 06:50] LABS: Blood Urea Nitrogen 14 mg/dl (7-17); Calcium 9.4 mg/dl (8.4-10.2); Carbon Dioxide 22 mmol/L (22-30); Chloride 104 mmol/L (98-107); Estimated Creatinine Clearance 58 ml/min; Glucose 84 mg/dl (70-99); Potassium 3.3 mmol/L (3.5-5.1); Sodium 134 mmol/L (135-145); eGFR > 60.00
--- NOTE | 2024-10-26 07:30 | CON.GI ---
Addendum entered and electronically signed by Rubens Griggs DO 10/26/24 10:02:
I saw and examined the patient.
The ENDOCRINOLOGIST's note was reviewed and I agree with the detailed note.
Comment: Ms. Spangler is a 74 y.o female with a past medical history as listed below with previous ED visits for abdominal pain with prior unremarkable imaging who re-presented with worsening, severe upper abdominal pain along with nausea/vomiting.
Concern for pain [id number] on exam upon admission where repeat CT imaging was reviewed with patent vasculature and without any evidence of mesenteric ischemia upon review of Radiology. The etiology of her symptoms appear most concerning for
an unintentional overdose of Boniva (Ibandronic acid- bisphosphonate) resulting in gastric irritation as known irritant in GI tract and concern for potential PUD versus severe erosive esophagitis but without any signs of GI bleeding. Incidental
ileitis and colitis as well on repeat imaging and suspect drug-induced as well given her Boniva and not seen on prior imaging. Previous colonoscopy back in 2016 was unremarkable. She would benefit from an EGD for further evaluation given concern for
PUD and/or severe esophagitis in setting of overdose of bisphosphonates and previous NSAIDs. Patient unable to tolerate a prep given her significant upper GI symptoms and would defer any plans for a colonoscopy this admission. However, she would
benefit from a repeat colonoscopy as an outpatient. Agree with maximal acid-suppression with IV PPI along with carafate pending findings of EGD. Additionally, would consider contacting poison control as she was taking Bonvia TiD (rather than q
monthly). Strict avoidance of all NSAIDs. Rest of ongoing supportive care and recommendations as outlined below. See same day EGD report for additional findings and recommendations.
Original Note:
Consultation
-
Date/Time Consultation Requested: 10/25/242114
Date/Time Consultation Performed: 10/26/24729
Requesting Provider: Ward eRmy DO
Performing Provider: SAIRA Laurent, Rubens Griggs DO
Reason for Consultation: abdominal pain
Medical History
Chief Complaint / HPI
Chief Complaint: abdominal pain
History of Present Illness:
Pt is a 74yo with hx GERD, HTN, PUD, RA, Sjogren's, hypothyroidism, balance issues, diverticulitis, IBS, ADHD prior ortho surgery with onset of abdominal pain with nausea, vomiting, diarrhea, and constipation. Symptoms started 1 week ago with
initial constipation then noted diarrhea after mag citrate. Pt was in ER 10/[address] noted constipation and prominent LN adjacent right femoral artery similar to 2022 . She was given Zofran and advised mag citrate but vomited mag citrate and
returned. She attempted enema as had declined earlier that day with minimal result. She then returned with continued symptoms 10/[address] with possible wall thickening of gastric antrum possible gastritis. She was advised mag citrate and then
Miralax BID. She recall ' blow out ' of stool but continued symptoms. She now return again with continued abdominal pain. CT was repeat for third time with wall thickening in sigmoid and TI with mild ileocolitis with stable vascular evaluation.
In review with patient she denies any recent travel, abx but does admits to recent start of Boniva. She admits dosing was to be once per month but she was confused and took three times per day for about 2 weeks with last dose about 1 week ago.
She also admits to running out of Tylenol and taking Aleve as alternative for several days. She continues with mid abdominal pain. Pain is constant. + wt loss 10 lbs in 2 weeks. She also admits to hx GERD and PUD on Omeprazole prior to
admission. She denies dysphagia, odynophagia, or rectal bleeding. Denies visual problems.
02/2022 EGD [facility] - Normal esophagus - Z-line regular, 39 cm from the incisors. - Mild antral gastritis. Biopsied for Helicobacter pylori testing. - Normal examined duodenum. Biopsied for evaluation of celiac disease.
02/2016 colonoscopy- [facility] The colon (entire examined portion) appeared normal. No additional abnormalities were found on retroflexion. The terminal ileum appeared normal.
Past Medical History
Past Medical History: GERD, HTN, Hypothyroidism and Other (RA, Sjogren's syndrome, PUD, diverticulitis, IBS, ADHD, balance issues)
Past Surgical History: Orthopedic (right TKA, shoulder surgery, lumbar fusion)
Social History
Tobacco: Non-Smoker
Alcohol: None
Drug: None
Living: Alone
Employment: Retired
Family History
Family History: Other (no family hx IBD or GI malignancies )
Allergies / Home Medications
Allergy/AdvReac Type Severity Reaction Status Date / Time
clavulanic acid Allergy GI UPSET Verified 10/21/24 09:54
erythromycin base Allergy Hives Verified 10/21/24 09:54
ondansetron HCl Allergy Hives Verified 10/25/24 21:13
[From Zofran (as
hydrochloride)]
oxycodone HCl [From Percocet] Allergy Hives - Verified 10/21/24 09:54
WITH
GENERICS
Shellfish *RETIRED-03/24/12 Allergy Hives Verified 10/21/24 09:54
[Shellfish]
�Medication �Instructions �Recorded
acetaminophen 325 mg tablet 650 mg PO Q6HPRN PRN mild pain 10/25/24
(Tylenol)
candesartan 32 mg tablet 32 mg PO DAILY Blood Pressure 10/25/24
clonazepam 1 mg tablet 1 mg PO HS 10/25/24
fluoxetine 20 mg capsule 20 mg PO DAILY Mental 10/25/24
Health/Anxiety
hydroxychloroquine 200 mg tablet 300 mg PO HS 10/25/24
(Plaquenil)
ibandronate 150 mg tablet 150 mg PO MONTHLY 10/25/24
leflunomide 10 mg tablet 10 mg PO HS 10/25/24
omeprazole 20 mg tablet,delayed 20 mg PO DAILY 10/25/24
release
Review of Systems
-
History Source: Patient
Constitutional: Reports Weight Loss (10 lbs 2 weeks )
EENT: Reports No Symptoms
Respiratory: Reports No Symptoms
Cardiac: Reports No Symptoms
Abdomen/GI: Reports Abdominal Pain, Nausea, Vomiting, Diarrhea and Constipated
: Reports No Symptoms
Musculoskeletal: Reports No Symptoms
Skin: Reports No Symptoms
Neurological: Reports Weakness
Endocrine: Reports No Symptoms
Hematologic/Lymphatic: Reports No Symptoms
Vital Signs
Temp Pulse Resp BP Pulse Ox
98.0 F 79 15 118/72 94
10/25/24 23:05 10/25/24 23:05 10/25/24 23:05 10/25/24 23:05 10/25/24 23:05
Physical Exam
Exam
General: Well Developed, Well Nourished and Other (+ distress with pain)
HEENT: Normocephalic and Anicteric
Respiratory: Clear
Cardiac: Regular Rhythm
GI: Soft, Non Distended and Tender (diffuse mid abdomen )
Musculoskeletal: No Clubbing and No Cyanosis
Skin: Warm and Dry
Neuro: Awake, Alert and AO x 3
Psych: Calm
Results
WBC 5.3 10^3/uL (4.8-10.8) 10/26/24 05:50
Hgb 12.2 g/dL (12.0-16.0) 10/26/24 05:50
Hct 36.2 % (37.0-47.0) L 10/26/24 05:50
MCV 87.4 fL (81.0-99.0) 10/26/24 05:50
Plt Count 260 10^3/uL (130-400) D 10/26/24 05:50
Absolute Neuts (auto) 5.4 10^3/uL (1.4-6.5) 10/25/24 12:21
Sodium 134 mmol/L (135-145) L 10/26/24 05:50
Potassium 3.3 mmol/L (3.5-5.1) L 10/26/24 05:50
Chloride 104 mmol/L (98-107) 10/26/24 05:50
Carbon Dioxide 22 mmol/L (22-30) 10/26/24 05:50
BUN 14 mg/dl (7-17) 10/26/24 05:50
Creatinine 0.6 mg/dL (0.6-1.0) 10/26/24 05:50
Calcium 9.4 mg/dl (8.4-10.2) 10/26/24 05:50
Total Bilirubin 0.7 mg/dl (0.2-1.3) 10/25/24 12:21
AST 22 U/L (14-36) 10/25/24 12:21
ALT 17 U/L (0-35) 10/25/24 12:21
Alkaline Phosphatase 61 U/L (38-126) 10/25/24 12:21
Lipase 305 U/L (23-300) H 10/25/24 12:21
Diagnostic Image Results:
10/19/24 CT Abd/Pel (IV only)-DH only
There is a moderate colonic stool burden extending into the sigmoid colon, likely secondary to constipation.
Leiomyomatous uterus.
1.6 cm round, mildly hyperdense lesion adjacent to the right, and femoral artery. This is unchanged from prior examination in 2022 and may represent a prominent lymph node.
10/21/24 CT Abd/pelvis W Iv Cont
1. No specific findings to explain pain. No acute intra-abdominal process identified.
2. Negative for bowel obstruction. Normal appendix. As above, question mild wall thickening of the gastric antrum which could be related to gastritis. This may be related to peristalsis. If there is clinical concern, could be further evaluated
with follow-up endoscopy.
3. Unchanged approximately 1.5 cm increased attenuation nodule adjacent to right external iliac artery, question enhancing lymph node. No significant change from prior. Exact etiology of this is indeterminate.
4. Incidental small bilateral simple fluid attenuation adnexal cysts, probable ovarian cyst.
10/25/24 CT Abd/pel W Iv And Oral Contr
1. Mild circumferential wall thickening in the sigmoid colon and terminal ileum suggesting a mild ileocolitis.
2. Multiple uterine leiomyoma.
3. Small bilateral simple ovarian cysts.
4. Mild distention of the urinary bladder.
5. Small pericardial effusion.
6. Severe discogenic degenerative disease at L2/L3 and L5/S1.
7. Previous posterior decompression and circumferential fusion at L3/L4 and L4/L5.
addendum
The distal descending thoracic aorta is normal in course and caliber. Abdominal aorta is normal in course and caliber with only mild scattered atherosclerotic calcifications. Major abdominal arterial branches are normal in course and caliber without
evidence for atherosclerotic disease. There is no overt evidence of aortic dissection, aneurysm or acute aortic injury.
Prior GI Procedures:
02/2022 EGD [facility] - Normal esophagus - Z-line regular, 39 cm from the incisors. - Mild antral gastritis. Biopsied for Helicobacter pylori testing. - Normal examined duodenum. Biopsied for evaluation of celiac disease.
02/2016 colonoscopy- [facility] The colon (entire examined portion) appeared normal. No additional abnormalities were found on retroflexion. The terminal ileum appeared normal.
Assessment / Plan
-
Pt is a 74yo with hx GERD, HTN, PUD, RA, Sjogren's, hypothyroidism, balance issues, diverticulitis, IBS, ADHD prior ortho surgery with onset of abdominal pain with nausea, vomiting, diarrhea, and constipation. Symptoms started 1 week ago with
initial constipation then noted diarrhea after mag citrate, enema and miralax. Pt admits to hx PUD and recent unintentional missed dose of Boniva taking TID x 2 weeks stopped 1 week ago and recent NSAID use. She has had CT x 3 in last week with
constipation, gastric thickening, and thickening in sigmoid and mild ileocolitis with stable vasculature.
-abdominal pain with nausea/vomiting/constipation then diarrhea
-unintentional overdose of Boniva x 2 weeks taking TID stopped 1 week ago
-GERD
-recent NSAID use
-hx PUD
- multiple CT with constipation, gastric thickening, and thickening in sigmoid and mild ileocolitis with stable vasculature
-mild lipase elevation
-wt loss
other med problems:
-HTN
-RA
-Sjogren's
- hypothyroidism
-balance issues
-diverticulitis
-IBS
-ADHD
- prior ortho surgery
PLAN:
etiology of symptoms with concern for gastric irritation with overdose of Boniva(was due monthly and pt took TID) and recent NSAID use-- PUD, gastritis vs other
plan for EGD today
NPO
increased PPI to BID-- pending EGD results may need PPI Gtt and Carafate
monitor calcium level which has been stable, pt denies visual issues
reviewed with Dr. Yeager
cont off Boniva(last dose 1 week ago) and NSAIDs
-
-
Thank you for consultation and allowing me to participate in the patient's care. Please call the prevention coordinator GI physician during the after hours with any questions or concerns.
[2024-10-26 07:38] LABS: Hepatitis C Antibody Negative (Negative)
[2024-10-26] MEDS: LR 1000 IV ×2 (08:18→20:25)
[2024-10-26] MEDS: PROZAC 20 MG PO (08:20)
[2024-10-26] MEDS: PROTONIX IV 40 MG IV ×2 (08:20→20:26)
[2024-10-26] MEDS: NSS (PRESERVATIVE FREE) 10 ML IV ×2 (08:20→20:26)
[2024-10-26 09:05] LABS: Lipase 285 U/L (23-300)
--- NOTE | 2024-10-26 09:56 | PTCARENOTE ---
Pt taken down for endoscopy by transport.
--- NOTE | 2024-10-26 11:11 | W.PN.UPDATE ---
Update Note
Progress Note Update
I spoke with poison control - [facility]ohannes to verify if any other intervention for Boniva overdose (taking TID) Continue supportive care. I also spoke with vice president pharmacy who assisted in ER yesterday. Per staff she was only dispensed 3 tablets. Pt may
have been confused with medication. Dr. Yeager to further review with patient.
--- NOTE | 2024-10-26 15:31 | W.PN.HOSP.TC ---
Today's Communication/Plan
-
Advance diet
Continue PPI
Monitor for recurrent symptoms
Assessment / Plan
Assessment / Plan
Impression:
Patient is a 74y F with PMH significant for HTN and RA who presents to ED complaining of one week of abdominal pain and N/V/constipation.
Abdominal pain
Other conditions:
Benign hypertension
Rheumatoid arthritis
Sjogren syndrome
GERD/PUD
Anxiety/insomnia
Plan:
Presentation with abdominal pain, nausea and vomiting.
Prior history of PUD.
Apparently found to have discrepancy in medication intake with Boniva patient incorrectly taking 3 times a day for duration of for about a week.
Urgent EGD unremarkable with no evidence of esophagitis, gastritis or PUD.
Continue IV PPI for 24 hours with transition to oral.
Continue clear liquid diet and advance as tolerates.
Patient instructed to stop Boniva and consult with primary spike driver as outpatient
Scientific Specialist discussed with Poison Control Center. No further action recommended. Continue supportive care.
Avoid NSAIDs
Rheumatoid arthritis.
Sjogren syndrome.
Preadmission regimen including Plaquenil, leflunomide, sulfasalazine
Essential hypertension
On continue Zartan
Anticipated Discharge: Within 24 hours
Subjective/Interval History
-
Date of Service: October 26, 2024
Objective Data
-
Labs:
Laboratory Results
10/26/24
05:50
WBC 5.3
Hgb 12.2
Hct 36.2 L
Plt Count 260 D
Sodium 134 L
Potassium 3.3 L
Chloride 104
Carbon Dioxide 22
BUN 14
Creatinine 0.6
Glucose 84
Calcium 9.4
Vital Signs:
Vital Signs
Temp Pulse Resp BP Pulse Ox
98.9 F 77 16 131/66 97
04/22/25 14:30 10/26/24 14:30 10/26/24 14:30 10/26/24 14:30 10/26/24 14:30
I&O
10/25/24 10/26/24 10/27/24
06:59 06:59 06:59
Intake Total 600 / 600
Balance 600 / 600
Physical Exam
-
General: Well Developed and No Apparent Distress
HEENT: Normocephalic, Atraumatic and Moist Mucous Membranes
Respiratory: Clear to Auscultation
Cardiac: Regular Rhythm and S1/S2; Negative Murmur, Rub or Gallop
GI: Soft, Nontender, Nondistended and Normal Bowel Sounds; Negative Organomegaly
Rectal: Deferred by Provider
Musculoskeletal: No Clubbing, No Cyanosis and No Edema
Skin: Negative Rash
Neuro: Nonfocal/Grossly Intact
[2024-10-26] MEDS: CARAFATE 1 GRAM PO ×2 (15:32→22:53)
--- NOTE | 2024-10-26 16:14 | CM ---
Alert awake oriented patient who lives in independent living at [place].She is independent in all activities of daily living.Offered VN she declined.RAMSES letter given reviewed. Pt declined to sign . RAMSES cadena on chart.
No adaptive devices
Never had VN/SNF
Pharmacy [facility]
PCP Dr Almanzar
PLAN Home no needs
[2024-10-26] MEDS: KLONOPIN 1 MG PO (22:53)
[2024-10-26] MEDS: PLAQUENIL 300 MG PO (22:53)
[2024-10-27 06:00] VITALS: BMI 25.9
[2024-10-27] MEDS: LR 1000 IV (06:30)
[2024-10-27 06:44] LABS: Hematocrit 32.5 % (37.0-47.0); Hemoglobin 10.8 g/dL (12.0-16.0); Mean Corp Hgb Conc. 33.2 g/dL (33.0-37.0); Mean Corpuscular Hgb 29.2 pg (27.0-31.0); Mean Corpuscular Volume 87.8 fL (81.0-99.0); Platelet Count 221 10^3/uL (130-400); White Blood Cell Count 4.9 10^3/uL (4.8-10.8)
[2024-10-27 07:30] VITALS: BP 143/87
[2024-10-27 08:28] LABS: Calcium 9.5 mg/dl (8.4-10.2)
[2024-10-27] MEDS: CARAFATE 1 GRAM PO (10:21)
[2024-10-27] MEDS: PROZAC 20 MG PO (10:21)
[2024-10-27] MEDS: NSS (PRESERVATIVE FREE) 10 ML IV (10:22)
[2024-10-27] MEDS: PROTONIX IV 40 MG IV (10:22)
--- NOTE | 2024-10-27 14:50 | W.DS.TRANS ---
DC Summary - Property Maintenance Supervisor
-
Discharge Instructions:
Discharge Diagnosis/Procedures Abdominal pain
Other conditions:
Benign hypertension
Rheumatoid arthritis
Sjogren syndrome
GERD/PUD
Anxiety/insomnia
Diet Regular
Instructions:
Stand-Alone Forms:
Changes to Home Medications: No
Discharge Medications:
DC Medications w/original date entered in [facility]
acetaminophen 325 mg tablet (Tylenol) 650 mg PO Q6HPRN PRN mild pain 10/25/24
candesartan 32 mg tablet 32 mg PO DAILY Blood Pressure 10/25/24
clonazepam 1 mg tablet 1 mg PO HS 10/25/24
fluoxetine 20 mg capsule 20 mg PO DAILY Mental Health/Anxiety 10/25/24
hydroxychloroquine 200 mg tablet (Plaquenil) 300 mg PO HS 10/25/24
leflunomide 10 mg tablet 10 mg PO HS 10/25/24
omeprazole 20 mg tablet,delayed release 20 mg PO DAILY 10/25/24
sucralfate 1 gram tablet 1 g PO Q8 #90 tabs 10/27/24
Home Medication Changes
Carafate added
Pending Results: No
--- NOTE | 2024-10-27 14:55 | CM ---
MD entered order for discharge.
Spoke with pt she said she was ready for discharge.
Offered VN she declined need.
Pt set up van from [facility].
PLAN Return to ID at [place]
[2024-10-27 15:06] VITALS: BP 148/89
== END 2024-10-27 16:15 | disposition home or self-care (01) ==
LOC: 4 EAST ACU 20:00
PROVIDERS: Nurse Practitioner Adult Health; Physician Assistant; ADMITTING PHYSICIAN Hospitalist; ATTENDING PHYSICIAN Internal Medicine; CONSULT PHYSICIAN Student in an Organized Health Care Education/Training Program; EMERGENCY PHYSICIAN Emergency Medicine; FAMILY PHYSICIAN Physician Assistant Medical
PROC: 0DB78ZX Excision of Stomach, Pylorus, Via Natural or Artificial Opening Endoscopic, Diagnostic (ICD-10-PCS; 2024-10-26)
PROC: 0DB58ZX Excision of Esophagus, Via Natural or Artificial Opening Endoscopic, Diagnostic (ICD-10-PCS; 2024-10-26)
DX: R10.84 Generalized abdominal pain (principal); Z87.891 Personal history of nicotine dependence; I10 Essential (primary) hypertension; I95.9 Hypotension, unspecified; M06.9 Rheumatoid arthritis, unspecified; M35.00 Sjogren syndrome, unspecified; K21.9 Gastro-esophageal reflux disease without esophagitis; G47.00 Insomnia, unspecified; F41.9 Anxiety disorder, unspecified; Z79.899 Other long term (current) drug therapy
CPT/HCPCS: 43239; 88305; 74177; 80048; 80053; 82310; 83605; 83690; 84484; 85025; 85027; 86803; 88342; 93005; 96361; 96374; 99285; G0378; Q9967